=== PATIENT | female | born 1985 | race Caucasian/White ===

== ENCOUNTER 2022-01-29 02:02 | Emergency (ER) | payer OTHER ==
[~2022-01-29] VITALS: Ht 172.7 cm; Wt 103.8 kg
--- NOTE | 2022-01-29 02:22 | PHYS DOC ---
Adult General Chief Complaint Chief Complaint: GROIN PAIN HPI HPI Patient is a 36-year-old female who presents with some vaginal itching after using some nystatin topical cream given to her by urgent care for a yeast infection. States she did take a Benadryl earlier which seemed to help a little but it still itches. Denies any dysuria, hematuria, diarrhea or blood in the stool. Denies any history of STIs or concern thereof. Review of Systems Review of Systems Review of systems otherwise unremarkable except noted in HPI Allergies Allergies Allergies Coded Allergies Type Severity Reaction Last Updated Verified Sulfa (Sulfonamide Antibiotics) Allergy Unknown 01/29/22 Yes Physical Exam Physical Exam Constitutional: Well developed, well nourished, no acute distress, non-toxic appearance. [] HENT: Normocephalic, atraumatic, oropharynx moist, no oral exudates, nose normal. [] Eyes: conjunctiva normal, no discharge. [] Neck: Normal range of motion, no tenderness, supple, no stridor. [] Cardiovascular: Sinus tachycardia Lungs & Thorax: No respiratory distress Abdomen: soft, no tenderness, no masses, no pulsatile masses. : Mild erythema around outer labia with no bleeding or lesions noted [] Skin: Warm, dry, no erythema, no rash. [] Neurologic: Alert and oriented X 3, normal motor function, normal sensory function, no focal deficits noted. [] Psychologic: Affect normal, judgement normal, mood normal. [] EKG EKG [] Radiology/Procedures Radiology/Procedures [] Heart Score C/O Chest Pain: No Risk Factors: Risk Factors: DM, Current or recent (<one month) smoker, HTN, HLP, family history of CAD, obesity. Risk Scores: Risk Factors: DM, Current or recent (<one month) smoker, HTN, HLP, family history of CAD, obesity. Course & Med Decision Making Course & Med Decision Making Patient is a 36-year-old female who presents with some vaginal itching after using nystatin topical Vital signs notable for sinus tachycardia initially. Physical exam noted above. Given steroids, given pain medicine. Given second dose of fluconazole Advised to stop using the cream. Advised on appropriate light gentle hygiene. Advised to keep upcoming appointment with primary care physician on Sunday. Gave return precautions to the ED. Patient grateful, verbalized understanding and agreed with plan of discharge [] Dragon Disclaimer Dragon Disclaimer This electronic medical record was generated, in whole or in part, using a voice recognition dictation system. Departure Departure: Impression: Primary Impression: Allergic reaction Additional Impression: Contact dermatitis Disposition: HOME / SELF CARE / HOMELESS Condition: STABLE Referrals: LANIE THACKER MD (PCP) Patient Instructions: Contact Dermatitis, Yeast Infection of the Skin, Easy-to- Read Additional Instructions: Thank you for coming into the emergency department tonight and allowing us to take care of you. Please read the attached information carefully go over things we discussed. Please be sure to stop using the [id number] cream. Please use gentle warm water and soap to clean as not to cause any further irritation with strong soaps. You can begin Tylenol, ibuprofen and Benadryl daily over the next couple of days. Please keep your upcoming appointment with your primary care physician. Please come back with new or concerning symptoms as discussed. Problem Qualifiers NATALIO THOMPSON MD Jan 29, 2022 02:22
[2022-01-29 02:47] VITALS: BP 131/86
[2022-01-29] MEDS ORDERED: FLUCONAZOLE 100 MG TABLET. PO ONE (03:00)
[2022-01-29] MEDS ORDERED: oxyCODONE/APAP 5/325 1 TAB TABLET PO ONE (03:00)
[2022-01-29] MEDS ORDERED: DEXAMETHASONE 4 MG TABLET PO ONE (03:00)
== END 2022-01-29 03:05 | disposition home or self-care (01) ==
LOC: ER 02:02
DX: L23.9 Allergic contact dermatitis, unspecified cause (principal); Z88.2 Allergy status to sulfonamides
CPT/HCPCS: 99284; J8540